=== PATIENT | female | born 1950 | race African-American/Black ===

== ENCOUNTER 2017-09-08 09:42 | Inpatient (IN) | payer OTHER ==
[~2017-09-08] VITALS: Ht 160 cm; Wt 63.5 kg
--- NOTE | ~2017-09-08 | CATHLAB ---
[facility] [address] [place] [address] INVASIVE PROCEDURE REPORT Name: SHYANN RAI Room #: 249-P [facility] IN ..#: [id number] Admission: 09/08/17 Attend Phys: Gigi Vicente Discharge: 09/08/17 Date of : 48 Date of Service: 09/11/17 0716 Report #: [id number] THIS REPORT FOR: //name// APPROVED REPORT Patient Details Patient Status: Out-Patient Room #: The patient is a 67 year-old female Event Personnel Gigi Luis Entertainment Musician, Corby Parkinson RN, Emma Cabral, Luis Angel Pascual Monitor Procedures Performed Coronary Angiography Only [id number] [facility] Access - R femoral artery* BMS Place w/wo Plasty Single RCA [id number] BMSSINGLE 16088 Initial Mod Sed Same Phys/QHP Gr5y [id number] [id number] Mod Sed Same Phys/QHP Ea [id number] Indication Positive stress test, Chest pain Procedure Narrative The patient was brought electively to the Cardiac Catheterization Laboratory and was prepped and draped in a sterile manner. The Right Groin^ was infiltrated with 1% Lidocaine subcutaneous anesthesia. A PINNACLE 6FR Sheath #[id number] sheath was inserted into the RFA^. Coronary angiography was performed using coronary diagnostic catheters. The right coronary system was accessed and visualized with a JR 4 catheter. The left coronary system was accessed and visualized with a JL 4 catheter. There was no hematoma. Intraoperative Conscious Sedation Sedation start time: 12:39 Case end Time: 14:04 Versed 2.0 mg Fluoro Time: 22.41 minutes Dose: 2033 mGy Contrast Type and Amount: Omnipaque 125 ml Diagnostic Cath Left Main Normal origin and caliber bifurcates left anterior descending left circumflex free of high-grade disease LAD Daughter caliber type 2-3 vessel its courses anteriorly giving [place] [address] [place] [address] INVASIVE PROCEDURE REPORT Name: SHYANN RAI Room #: 249-P DIS IN M.R.#: [id number] Admission: 09/08/17 Attend Phys: Gigi Vicente Discharge: 09/08/17 Date of : 48 Date of Service: 09/11/17 0716 Report #: [id number] rise to septal and diagonal branches. There is a moderate at least 65-70% eccentric lesion in the proximal mid LAD. The LAD then continues in the anterior interventricular sulcus giving rise to septal and diagonal branches in its course. Diagonal 1 Significant high-grade lesions noted Circumflex Small to moderate caliber vessel coursing the lateral aspect of the left ventricle giving rise to marginal branches with luminal irregularities Rodriguez of high-grade disease OM1 Irregularities noted Right Coronary Caliber vessel of normal origin and courses posteriorly giving rise to a posterior descending and a posterior lateral branch. No significant high-grade lesions are noted Left Ventriculography Left Ventriculography was not performed. Hemodynamics The aortic pressure is 156/82 mmHg with a mean of 107 mmHg. PCI Technique Immediately upon angiography of the right coronary arteries contrast staining was identified and initial imaging demonstrated the presence of a spiral dissection. Thoracic surgery was consult at stat in view of significant left coronary LAD lesion. Rapid extension of the spiral dissection was noted and the diagnostic catheter was exchanged for a right coronary guide. Wire was advanced within the true lumen distally to secure the central channel. The extension continued posteriorly into the posterior lateral branch. In view of the time duration to have the patient transported to the OR suite a balloon was then advanced and multiple inflations were obtained to try and reexpand the dissection and establish flow. Balloon pump discussions with surgery was carried forth the concern was extension of the dissection with the counterpulsation and therefore was not placed. During this interval the patient's respiratory status was decreasing requiring Ambu bag eating and pressure were beginning to drop. Stat consult for intubation was made as they were coming in. While patient being intubated and developed ventricular fibrillation required defibrillation and IV amiodarone bolus syncope. At this point in time decision was made to proceed with attempted stenting and bare-metal stent was taken distally and deployed. Flow was not able to [place] [address] nicardipine into coronary to try and establish flow. At this time and was ready and the patient was taken emergently to the OR suite for attempted revascularization of the right coronary vessel. Vital signs were noted and recorded. [facility] [address] [place] [address] INVASIVE PROCEDURE REPORT Name: SHYANN RAI Room #: 249-P DIS IN M.R.#: [id number] Admission: 09/08/17 Attend Phys: Gigi Vicente Discharge: 09/08/17 Date of : 48 Date of Service: 09/11/17715 Report #: [id number] PCI Technique Lesion A LAUNCHER 6FR JR 4 #[id number] Guide Catheter was used to engage the ostium. A Luge Wire (J) .014 X 182CM #[id number] Interventional Guidewire was used to cross the lesion. BALLOON DILATION A Balloon catheter Sprinter OTW 3.0 x 20 #[id number] was inserted and inflated up to 8atm for 30seconds. Additional Inflation: 8atm for 30seconds. Additional Inflation: 10atm for 60seconds. STENT DEPLOYMENT A bare metal stent INTEGRITY OTW 2.75 X 22 #[id number] was inserted and inflated up to 9atm for 30seconds. STENT DEPLOYMENT A bare metal stent INTEGRITY OTW 2.75 X 26 #[id number] was inserted and inflated up to 9atm for 15seconds. PCI Technique Lesion 2 Percutaneous Coronary Intervention was performed on the mistal right coronary artery. Conclusion 1. Coronary artery disease single vessel nonevasive evidence of ischemia 2 Apparent right coronary artery spiral dissection unable to be revascularized percutaneously and taken to surgery immediately Recommendations CABG <ELECTRONICALLY SIGNED> By: Gigi Luis MD 09/11/17715 5 5 Gigi Luis MD /INF
--- NOTE | ~2017-09-08 | D ---
[facility] [place] [address] DISCHARGE SUMMARY Name: SHYANN RAI Room #: 249-P [facility] IN M.R.#: [id number] Admission: 09/08/17 Attend Phys: Gigi Luis Discharge: 09/08/17 Date of : 48 Report #: [id number] THIS REPORT FOR: //name// CC: Gigi Martin DATE OF SERVICE: 09/08/2017 DATE OF DEMISE: 09/08/2017 ADMITTING DIAGNOSES: 1. Chest pain. 2. Abnormal perfusion scan involving left anterior descending artery disposition. HOSPITAL COURSE: The patient was brought to [facility] for elective left heart catheterization due to an abnormal perfusion scan obtained secondary to symptoms of chest discomfort ____ risk factors. In view of this, she underwent left heart catheterization utilizing 4-Palestinian catheters, which demonstrated a left anterior descending coronary artery lesion of 70%. The lesion was to undergo FFR to verify hemodynamic significance. Prior to this, the right coronary catheter was then imaged and upon imaging, a dominant right coronary artery with a posterior descending and posterolateral branch contrast staining was identified. Repeat angiography demonstrated the presence of a spiral dissection, which advanced and progressed rapidly. Thoracic Surgery was consulted immediately for surgical revascularization in view of likely significant left anterior descending lesion, which already demonstrated ischemia on noninvasive assessment. 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 She developed ventricular fibrillation several times requiring electrical defibrillation. Prior to this, the patient became agonal and respirations were assisted with Ambu bag bagging as Anesthesia was consulted stat for intubation. The patient was subsequently taken to the operating room emergently where determination that the entire lacunar artery was dissected and no focus of able to implant a graft as per Thoracic Surgery. She was able to come off BiPAP on maximal pressors, but continued to deteriorate and in the ICU. When notified from Surgery that the patient was unable to be bypassed, recommendations of possible transfer and mechanical assist devices was made since they are not available at [facility]. I contacted Dr. Mays and discussed the case with him initially with only having some pressor support but then rapidly deteriorating to requiring maximal pressor support. With our discussion, I was informed that right ventricular infarcts are not optimally treated with RVAD. In addition, when I mentioned the progressive and rapid deterioration, the likelihood of the patient been able to transfer safely was in question. Recommendations were to continue and try to have the patient be treated maximally medically to see if she can survive her right ventricular [facility] [address] [place] [address] DISCHARGE SUMMARY Name: SHYANN RAI Room #: 249-P [facility] IN M.R.#: [id number] Admission: 09/08/17 Attend Phys: Gigi Luis Discharge: 09/08/17 Date of : 48 Report #: [id number] inferior wall infarct. I arrived at the bedside and the patient had lost pressure and was pronounced. <ELECTRONICALLY SIGNED> By: Gigi Luis MD 09/22/17 1125 0701 2147 Gigi Luis MD /nt
[~2017-09-08 09:42] MED LIST: GLUCOTROL10 MG PO; IRON325 PO; JANUMET 50-1,01 EACH PO; LISINOPRIL20 MG PO
[2017-09-08 10:07] VITALS: BP 129/60
[2017-09-08] MEDS ORDERED: NORVASC10 MG PO (10:20)
[2017-09-08] MEDS ORDERED: VITAMINC500 PO (10:21)
[2017-09-08] MEDS ORDERED: ASPIR 8181 MG PO (10:22)
[2017-09-08] MEDS ORDERED: LIPITOR80 MG PO (10:22)
[2017-09-08] MEDS ORDERED: CALCIUM 500 +1 EAC5 PO (10:23)
[2017-09-08] MEDS ORDERED: IRON325 PO (10:24)
[2017-09-08] MEDS ORDERED: INVOKANA300 MG PO (10:25)
[2017-09-08] MEDS ORDERED: METFORMIN HCL500 MG PO (10:28)
[2017-09-08] MEDS ORDERED: JANUVIA100 MG PO (10:29)
[2017-09-08] MEDS ORDERED: OMEPRAZOLE40 MG PO (10:29)
[2017-09-08] MEDS ORDERED: MAGOX 400400 MG PO (10:30)
[2017-09-08 13:52] LABS: ABSOLUTE NEUTROPHILS 4.1 thou/uL (1.4-8.2); BASOPHILS 0.5 % (0.0-2.0); EOSINOPHILS 1.4 % (0.0-3.0); HEMATOCRIT 31.9 % (37.0-47.0); HEMOGLOBIN 10.4 gm/dL (12.0-15.0); LYMPHOCYTES 41.5 % (24.0-44.0); MCHC 32.5 g/dL (28.0-37.0); MCV 64.6 fL (80.0-100.0); MONOCYTES 5.3 % (1.0-8.0); PLATELET COUNT 263 thou/uL (150-400); POLYS 51.3 % (36.0-66.0); RBC 4.94 mil/uL (4.20-5.00); RDW 15.8 % (10.5-14.5)
[2017-09-08 13:59] LABS: CALCIUM 8.3 mg/dL (8.5-10.1); CREATININE 0.5 mg/dL (0.6-1.0); POTASSIUM 3.6 mmol/L (3.5-5.1)
[2017-09-08 14:04] LABS: ALBUMIN 3.2 g/dL (3.4-5.0); MAGNESIUM 1.6 mg/dL (1.8-2.4); TOTAL BILIRUBIN 0.5 mg/dL (<0.1-1.0); TOTAL PROTEIN 5.6 g/dL (6.4-8.2)
[2017-09-08 14:06] LABS: APTT 23.8 Seconds (24.5-32.8); PROTIME 10.7 Seconds (9.3-11.4)
[2017-09-08 14:34] LABS: PLATELET ESTIMATE NORMAL
[2017-09-08 14:35] LABS: ANISOCYTOSIS 1+; BURR CELLS 1+; MICROCYTES 2+; POLYCHROMASIA SLIGHT
[2017-09-08 17:12] LABS: POC BE 2 mmol/L (-2.0 to +3.0); POC CA IONIZED 3.3 mg/dL (4.5-5.3); POC GLUCOSE 294 mg/dL (70-99); POC HCO3 25.9 mmol/L (22.0-26.0); POC HEMOGLOBIN 6.8 g/dL (12.0-15.0); POC POTASSIUM 3.6 mmol/L (3.5-5.1); POC SODIUM 143 mmol/L (136-145); POC pCO2 35.8 mmHg (35.0-45.0); POC pH 7.467 (7.360-7.450)
[2017-09-08 17:17] LABS: POC BE 4 mmol/L (-2.0 to +3.0); POC CA IONIZED 3.2 mg/dL (4.5-5.3); POC GLUCOSE 345 mg/dL (70-99); POC HCO3 28.3 mmol/L (22.0-26.0); POC HEMOGLOBIN 6.8 g/dL (12.0-15.0); POC POTASSIUM 3.2 mmol/L (3.5-5.1); POC SODIUM 147 mmol/L (136-145); POC pCO2 40.5 mmHg (35.0-45.0); POC pH 7.451 (7.360-7.450)
[2017-09-08 17:17] LABS: POC BE -3 mmol/L (-2.0 to +3.0); POC CA IONIZED 4.3 mg/dL (4.5-5.3); POC GLUCOSE 281 mg/dL (70-99); POC HCO3 21.2 mmol/L (22.0-26.0); POC HEMOGLOBIN 6.5 g/dL (12.0-15.0); POC POTASSIUM 2.8 mmol/L (3.5-5.1); POC SODIUM 146 mmol/L (136-145); POC pCO2 30.7 mmHg (35.0-45.0); POC pH 7.447 (7.360-7.450)
[2017-09-08 17:17] LABS: POC BE 8 mmol/L (-2.0 to +3.0); POC CA IONIZED 2.8 mg/dL (4.5-5.3); POC GLUCOSE 428 mg/dL (70-99); POC HCO3 31.1 mmol/L (22.0-26.0); POC HEMOGLOBIN 5.8 g/dL (12.0-15.0); POC POTASSIUM 3.1 mmol/L (3.5-5.1); POC SODIUM 147 mmol/L (136-145); POC pH 7.511 (7.360-7.450)
[2017-09-08 18:02] VITALS: BP 129/60
[2017-09-08 19:11] LABS: GLYCOHEMOGLOBIN (HGB A1C) 5.8 % (4.8-5.6)
[2017-09-09 10:17] LABS: POC BE -14 mmol/L (-2.0 to +3.0); POC CA IONIZED 4.1 mg/dL (4.5-5.3); POC GLUCOSE 492 mg/dL (70-99); POC HCO3 13.1 mmol/L (22.0-26.0); POC HEMOGLOBIN 8.8 g/dL (12.0-15.0); POC POTASSIUM 2.9 mmol/L (3.5-5.1); POC SODIUM 139 mmol/L (136-145); POC pCO2 30.4 mmHg (35.0-45.0); POC pH 7.244 (7.360-7.450)
== END 2017-09-08 18:30 | DRG 248 ==
LOC: CATH 09:42 → ICU 17:20 → CATH 17:21 → ICU 18:30
PROVIDERS: Internal Medicine; Nurse Practitioner
PROC: 30233R1 Transfusion of Nonautologous Platelets into Peripheral Vein, Percutaneous Approach (ICD-10-PCS; principal; 2017-09-08)
PROC: 5A1221Z Performance of Cardiac Output, Continuous (ICD-10-PCS; 2017-09-08)
PROC: 30233N1 Transfusion of Nonautologous Red Blood Cells into Peripheral Vein, Percutaneous Approach (ICD-10-PCS; 2017-09-08)
PROC: 06BQ4ZZ Excision of Left Saphenous Vein, Percutaneous Endoscopic Approach (ICD-10-PCS; 2017-09-08)
PROC: B24BZZ4 Ultrasonography of Heart with Aorta, Transesophageal (ICD-10-PCS; 2017-09-08)
PROC: 0PC00ZZ Extirpation of Matter from Sternum, Open Approach (ICD-10-PCS; 2017-09-08)
PROC: 02703EZ Dilation of Coronary Artery, One Artery with Two Intraluminal Devices, Percutaneous Approach (ICD-10-PCS; 2017-09-08)
PROC: B2001ZZ Plain Radiography of Single Coronary Artery using Low Osmolar Contrast (ICD-10-PCS; 2017-09-08)
DX: I25.42 Coronary artery dissection (principal); I21.3 ST elevation (STEMI) myocardial infarction of unspecified site; R57.0 Cardiogenic shock; E11.9 Type 2 diabetes mellitus without complications; I10 Essential (primary) hypertension; E78.5 Hyperlipidemia, unspecified; Z66 Do not resuscitate; Z88.0 Allergy status to penicillin; Z88.8 Allergy status to other drugs, medicaments and biological substances; Z79.899 Other long term (current) drug therapy; Z82.49 Family history of ischemic heart disease and other diseases of the circulatory system; Z79.82 Long term (current) use of aspirin
CPT/HCPCS: 10078; 47000; 47001; 47002; 47297; 47375; 48888; 50409; 50497; 50662; 51301; 51412; 52131; 52314; 53327; 53358; 56524; 56525; 56526; 56527; 56528; 56529; 56531; 56534; 57093; 62110; 62950; 64029; 65002; 65090; 65120